=== PATIENT | male | born 1985 | race Two or more races ===

== ENCOUNTER 2018-01-17 14:36 | Emergency (ER) | payer OTHER ==
[~2018-01-17] VITALS: Ht 167.6 cm; Wt 77.1 kg
[2018-01-17] MEDS ORDERED: SINGULAIR10 MG (14:45)
[2018-01-17] MEDS ORDERED: ZYRTEC10 M3 (14:46)
== END 2018-01-17 18:25 | disposition home or self-care (01) ==
LOC: ER 14:36
DX: L02.414 Cutaneous abscess of left upper limb (principal)

== ENCOUNTER 2019-04-29 20:11 | Emergency (ER) | payer OTHER ==
[~2019-04-29] VITALS: Ht 167.6 cm; Wt 76.2 kg
[~2019-04-29 20:11] MED LIST: SINGULAIR10 MG; ZYRTEC10 M3
== END 2019-04-29 21:46 | disposition home or self-care (01) ==
LOC: ER 20:11
DX: S13.4XXA Sprain of ligaments of cervical spine, initial encounter (principal); M25.511 Pain in right shoulder; M25.512 Pain in left shoulder; M54.5 Low back pain; R51 Headache; V49.88XA Car occupant (driver) (passenger) injured in other specified transport accidents, initial encounter; Y93.89 Activity, other specified; Y92.413 State road as the place of occurrence of the external cause; Y99.8 Other external cause status

== ENCOUNTER 2019-12-28 14:41 | Emergency (ER) | payer OTHER ==
[~2019-12-28] VITALS: Ht 167.6 cm; Wt 77.1 kg
== END 2019-12-28 18:59 | disposition home or self-care (01) ==
LOC: ER 14:41
DX: R07.89 Other chest pain (principal)

== ENCOUNTER 2020-08-14 10:22 | Emergency (ER) | payer OTHER ==
[~2020-08-14] VITALS: Ht 167.6 cm; Wt 76.2 kg
[2020-08-14] MEDS ORDERED: MEDROLPACK PO (16:16)
[2020-08-27] MEDS ORDERED: ACETAMINOPHEN500 M1 (14:37)
== END 2020-08-14 16:30 | disposition home or self-care (01) ==
LOC: ER 10:22
DX: R10.31 Right lower quadrant pain (principal); M25.551 Pain in right hip

== ENCOUNTER 2021-01-14 15:58 | Emergency (ER) | payer OTHER ==
[~2021-01-14] VITALS: Ht 167.6 cm; Wt 74.8 kg
[~2021-01-14 15:58] MED LIST changes: +ACETAMINOPHEN500 M1; +MEDROLPACK PO
== END 2021-01-14 20:40 | disposition home or self-care (01) ==
LOC: ER 15:58
DX: R07.89 Other chest pain (principal); R06.02 Shortness of breath; Z03.818 Encounter for observation for suspected exposure to other biological agents ruled out

== ENCOUNTER 2021-05-29 10:12 | Emergency (ER) | payer OTHER ==
[~2021-05-29] VITALS: Ht 167.6 cm; Wt 76.2 kg
== END 2021-05-29 13:25 | disposition home or self-care (01) ==
LOC: ER 10:12
DX: T78.40XA Allergy, unspecified, initial encounter (principal)